=== PATIENT | male | born 1970 | race Caucasian/White ===

== ENCOUNTER → 2018-12-11 | Outpatient (CLI) | payer OTHER ==
[2018-12-11] MEDS: SOD CHLORIDE 0.9% 100 ML (12:19)
[2018-12-11] MEDS: IOHEXOL 100 ML (12:19)
== END | disposition home or self-care (01) ==
LOC: C/S 10:51
DX: R94.39 Abnormal result of other cardiovascular function study (principal); R07.9 Chest pain, unspecified
CPT/HCPCS: 75571; 75574